=== PATIENT | female | born 1965 | race Caucasian/White ===

== ENCOUNTER → 2017-03-10 | Outpatient (CLI) | payer BC ==
--- NOTE | 2017-03-10 14:48 | KCIC ---
AP pelvis with two-view right hip HISTORY: Severe right hip pain for 2 months. No known injury. FINDINGS: Subchondral sclerosis and cysts, with mild spurring, at the pubic symphysis. 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 No evidence of acute fracture. No aggressive bone destruction. No dislocation. No significant soft tissue abnormality. IMPRESSION: 1. Findings compatible with osteitis pubis. 2. No acute abnormality otherwise identified. Electronically signed by: Arsalan Hammond MD (03/10/2017 2:45 PM) [facility]2
== END | disposition home or self-care (01) ==
LOC: KCIC 11:58
PROVIDERS: ATTEND Family Medicine
DX: M25.551 Pain in right hip (principal)
CPT/HCPCS: 73502

== ENCOUNTER → 2017-04-04 | Outpatient (CLI) | payer BC ==
--- NOTE | 2017-04-04 16:52 | KCIC ---
INDICATION: Low back pain radiating down right leg. TECHNIQUE: Sagittal T1, sagittal T2, sagittal STIR, axial T1, and axial T2 sequences are provided. No comparison is available. FINDINGS: Localizing series demonstrates mild dextrocurvature centered at L2-L3. There is no subluxation. There is a probable hemangioma at L3. There is no worrisome marrow lesion. There is fatty replacement of the endplates at L4-L5. There is diffuse disc desiccation. The conus medullaris is normal in signal intensity and in position. A few perineural cysts are noted. Right extrarenal pelvis is noted. The numbering system assumes 5 lumbar type vertebral bodies. Findings by individual level are as follows: L1-L2: There is no canal or foraminal compromise. L2-L3: There is a shallow left paracentral protrusion without canal or foraminal compromise. L3-L4: There is a mild disc bulge, likely with superimposed shallow left paracentral protrusion. There is minimal facet hypertrophy. There is also a right foraminal protrusion minimally contacting the exiting nerve root. There is no canal stenosis. L4-L5: Disc bulge and facet hypertrophy are noted with right foraminal herniation contacting the exiting nerve root. There is also mild right lateral recess narrowing. L5-S1: There is a right paracentral shallow protrusion and minimal facet hypertrophy. There is no canal or foraminal compromise. IMPRESSION: 1. Degenerative disc disease includes right foraminal herniations at L3-L4 and L4-L5, both of which contact the exiting nerve roots. Findings are more notable at L4-L5. 2. No high-grade canal stenosis at any level. Electronically signed by: Yo Heard MD (04/04/2017 4:49 PM) [facility]1
== END | disposition home or self-care (01) ==
LOC: KCIC MRI 15:46
PROVIDERS: ATTEND Family Medicine
DX: M51.36 Other intervertebral disc degeneration, lumbar region (principal)
CPT/HCPCS: 72148

== ENCOUNTER → 2017-04-13 | Outpatient (CLI) | payer BC ==
[~2017-04-13] MED LIST: ACET325T9 PO; GABA-585 PO; IOHEXOL 180 MG/ML 10 ML VIAL. ONE; NAPR500T3 PO; methylPREDNISolone ACETATE 40 MG/ML VIAL. ONE; methylPREDNISolone ACETATE 80 MG/ML VIAL. ONE; tylenol pm
--- NOTE | 2017-04-14 00:22 | PAIN ---
DATE OF SERVICE: 04/13/2017 INITIAL CONSULTATION FOR PAIN CLINIC CHIEF COMPLAINT: Low back and right lower extremity pain. HISTORY OF PRESENT ILLNESS: This is a 51-year-old female who presents with a history of pain in the low back for about 3 months, increasing since December of this year, no injury or accidents specifically reported, but just a gradually increasing pain in low back, right posterior gluteus, posterior thigh, radiating to the right groin and anterior thigh as well as some in the posterior aspect of the thigh, but mostly in the anterior lateral aspect. The patient reports no specific injury. It came up on its own. It is worse with activity, standing, walking, changing positions. It is better with sitting or lying down. It does awaken her from sleep occasionally, not every night. The patient reports it does not affect her bowel or bladder control, but does affect her ability to walk. If she is on her feet more than about 20-30 minutes, it does become more painful. The patient reports it is constant, throbbing, shooting with tingling and numbness. There is also some burning sensation in the same distribution, changes during the day, worse as activity goes on. The patient has physical therapy and exercise. She continues to do the exercises as well, but has not been significantly reducing the pain. The patient has tried Tylenol, Naprosyn, tramadol and gabapentin. The gabapentin has slightly helped, which she is taking 100 mg at night. Tylenol and Naprosyn also decreases the pain, but only for about 25%. The patient reports tramadol did not help. She had significant nausea response to it and stopped taking it. The patient had MRI scan of lumbar spine showing degenerative disease, right foraminal herniations at L3-L4 and L4-L5 both of which contact the exiting nerve roots, more notable at L4-L5. The patient reports no loss of motor function of the lower extremities, but significant fatigability of the right leg with standing. The patient reports her disability rate from 0-10, 10 being the worst, is at 6 with family and home responsibilities, occupation, self-care, 7 with recreation, social activity, 9 with sexual behavior, 4 with life support activities. PAST MEDICAL HISTORY: Significant for previous history of dizziness, sensitive stomach, Meniere disease. PREVIOUS SURGERY: Includes tonsillectomy in 1983, eye surgery in 2008 and x 2 in the past as well. CURRENT MEDICATIONS: Include gabapentin 100 mg at bedtime, naproxen 500 mg twice daily and Tylenol 325 mg 2 tablets as needed for pain up to 3 times daily. FAMILY HISTORY: Significant for diabetes. SOCIAL HISTORY: The patient does not smoke. Drinks alcohol 1-2 glasses of wine occasionally, but infrequently. The patient is , lives with her spouse and lives locally in [place], [place]. Works as a first grade elementary assistant teacher. REVIEW OF SYSTEMS: The patient's review of systems is positive for those items mentioned in history of present illness. It is complete, full and well documented on the patient's chart. All systems reviewed and otherwise negative. PHYSICAL EXAMINATION: VITAL SIGNS: The patient's blood pressure is 113/70, pulse 81, respirations 16, temperature 98.2 degrees Fahrenheit. Height is 5 feet 3 inches, weight 156 pounds. GENERAL: The patient is awake, alert, oriented, appropriate, very pleasant demeanor. HEENT: Head shows normocephalic, atraumatic. Extraocular movements are intact and symmetrical. Oral cavity: Mucous membranes moist and pink. Dentition is intact. NECK: Shows anterior throat supple without palpable lymphadenopathy noted. Swallow reflex is symmetrical. CHEST: Normal inspection. Breath sounds are clear to auscultation bilaterally. HEART: S1, S2 clear. No murmurs auscultated. ABDOMEN: Soft, nontender, nondistended. No palpable organomegaly. There is no rebound or guarding demonstrated. BACK: Shows grossly in the midline, normal appearing thoracic kyphosis and lumbar lordotic curvature. No bruises, lesions, rashes, or scars noted. Lumbar paraspinous musculature is symmetrical on inspection. With palpation, showed some mild to moderate tenderness to palpation, but only diffusely in lower lumbar distribution, without asymmetry, without triggers points or radiation, no tenderness over sacrum or sacroiliac regions. Lower extremities show deep tendon reflexes at 2+ in the patellar, 1+ tendocalcaneal tendons are equal. Motor exam is strong with 5/5 dorsiflexion, extension, quadriceps and hamstring flexion and symmetrical. Peripheral pulses are 2+ in the posterior tibial and dorsalis pedis pulses. No peripheral edema is noted. No clubbing or cyanosis. The patient's straight leg raise is noted to be positive on the right to about 45 degrees with decreased knee flexion and the left side is negative. Gaenslen and Brad maneuvers are negative bilaterally. The patient is able to stand, stand on her toes without difficulty or loss of balance, is walking with a normal appearing gait. Does not appear to have any favoring of the right or left lower extremities and is not using any assistive device to ambulate. IMPRESSION: 1. This is a 51-year-old female with approximately 3-month history of increasing pain, low back and radiation into the right lower extremity as noted with radicular qualities. 2. MRI scan of lumbar spine as noted. 3. History of Meniere disease and dizziness. PLAN: Options were discussed with the patient including conservative medical management, physical therapy and interventional technique. She would like to pursue interventional techniques. We discussed a lumbar epidural steroid injection using description as well as anatomical models to describe the procedure. Risks were then discussed including, but not limited to bleeding, infection, possibility of epidural hematoma, subsequent neurologic compromise, dural puncture, headaches, spinal cord and/or nerve damage, hematemesis and neurologically, bilateral, headaches, claims importantly pain control. The patient understands and wished to proceed. The patient will return to clinic in approximately 2 weeks for followup. She was counseled to return appointment, activity level and side effects to be aware of. DIAGNOSES: Lumbar radiculopathy with lumbar degenerative disk disease and lumbar herniated disk. PROCEDURE: Lumbar epidural steroid injection in translaminar approach to the L4-L5 level using C-arm fluoroscopic guidance under sterile prep and drape using local anesthetic. MEDICATION INJECTED: A total of 120 mg Depo-Medrol plus 10 mL preservative-free normal saline and 2 mL Isovue for contrast. CONDITION AT DISCHARGE: Stable. The patient tolerated the procedure well, had no complications. CLAUDIA BELLO MD DR: AZAEL/tyler JOB#: [id number] / [id number] MIRZA Spencer MD
== END | disposition home or self-care (01) ==
LOC: PNCL 07:25
PROVIDERS: ATTEND Anesthesiology
DX: M51.16 Intervertebral disc disorders with radiculopathy, lumbar region (principal); Z83.3 Family history of diabetes mellitus; Z88.8 Allergy status to other drugs, medicaments and biological substances; Z72.89 Other problems related to lifestyle
CPT/HCPCS: 62323; J1030; J1040

== ENCOUNTER 2021-07-01 07:31 | Emergency (ER) | payer BC ==
[~2021-07-01] VITALS: Ht 160 cm; Wt 72.5 kg
[~2021-07-01 07:31] MED LIST changes: -IOHEXOL 180 MG/ML 10 ML VIAL. ONE; +NAPR-514 PO; -NAPR500T3 PO; -methylPREDNISolone ACETATE 40 MG/ML VIAL. ONE; -methylPREDNISolone ACETATE 80 MG/ML VIAL. ONE
--- NOTE | 2021-07-01 07:44 | PHYS DOC ---
General Adult EDM: Chief Complaint: BACK PAIN - NO INJURY HPI: HPI: Patient is a 55 year old female here with low back pain, mostly on the right side with, with radiation of pain down her right buttocks and leg. She has a history of reported spinal stenosis, diagnosed 5 years ago. She saw pain management once and had an epidural injection, which improved her pain for quite some time. She reports that she has been doing some gardening and pulling weeds, several days ago, and now her pain has progressively worsened. She has taken [id number] Tylenol and Aleve with little relief. Her gave her 10 mg of Flexeril around 630 this morning. She reports no relief from that. She denies any direct trauma or injury. Denies fevers or chills. Denies abdominal pain. Denies urinary symptoms. She denies stool or urine incontinence. She denies motor weakness. She reported that she felt some tingling down her right leg briefly, but this resolved. No numbness. The pain is worse with movement, standing, bending and straight leg raising. She does not have a primary care physician currently, she has not sought care before today. Review of Systems: Review of Systems: Constitutional: Denies fever or chills. [] Respiratory: Denies cough or shortness of breath. [] Cardiovascular: Denies chest pain or edema. [] GI: Denies abdominal pain, nausea, vomiting : Denies urinary symptoms or urinary incontinence. Musculoskeletal: Reports low back pain, as detailed in HPI. Denies joint pain or swelling. Integument: Denies rash. [] Neurologic: Denies headache, focal weakness or sensory changes. [] Endocrine: Denies polyuria or polydipsia. [] Psychiatric: Denies depression or anxiety. [] Heart Score: C/O Chest Pain: No Risk Factors: Risk Factors: DM, Current or recent (<one month) smoker, HTN, HLP, family history of CAD, obesity. Risk Scores: Score 0 - 3: 2.5% MACE over next 6 weeks - Discharge Home Score 4 - 6: 20.3% MACE over next 6 weeks - Admit for Clinical Observation Score 7 - 10: 72.7% MACE over next 6 weeks - Early Invasive Strategies Allergies: Allergies: Allergies Coded Allergies Type Severity Reaction Last Updated Verified tramadol Adverse Reaction Severe Nausea and Vomiting 04/13/17 Yes Physical Exam: PE: Constitutional: Well developed, well nourished, no acute distress, non-toxic appearance. [] HENT: Normocephalic, atraumatic Eyes: Sclera are clear and anicteric. Neck: Trachea is midline. Cardiovascular:Heart rate regular rhythm, +2 radial and posterior tibial pulses bilaterally. Lungs & Thorax: Bilateral breath sounds clear to auscultation [] Abdomen: Abdomen soft, nondistended, nontender to palpation. No CVA tenderness. No flank or abdominal ecchymoses. No pulsatile mass noted. Skin: Warm, dry, no erythema, no rash. [] Back: No deformity, no midline tenderness or step-offs. Limited range of motion secondary to pain, mostly with flexion of the spine and rotating/rolling on the ED gurney. Extremities: No tenderness, no cyanosis, no clubbing, ROM intact, no edema. [] Neurologic: Alert and oriented X 3, normal motor function, normal sensory function, no focal deficits noted. 5 out of 5 motor strength all 4 extremities. DTRs 2 out of 4 bilateral lower extremities. Sensation is grossly intact. No foot drop noted. She is able to fully extend/dorsiflex both feet, full extension of the great toes. Antalgic but steady gait. Speech is clear and fluent Psychologic: Anxious, cooperative. EKG: EKG: [] Radiology/Procedures: Radiology/Procedures: IMAGING REPORT Signed PATIENT: EKTA MICHELLE ACCOUNT: [id number] : 1965 LOCATION: ER AGE: 55 SEX: F EXAM STATUS: REG ER ORD. PHYSICIAN: OK MCCLELLAND DO REASON: low back pain PROCEDURE: CT LUMBAR SPINE WO CONTRAST CT LUMBAR SPINE WO History:Reason: low back pain / Spl. Instructions: / History: Technique: Noncontrast CT was performed of the lumbar spine. Multiplanar reconstructions were performed. Exposure: One or more of the following individualized dose reduction techniques were utilized for this examination: 1. Automated exposure control 2. Adjustment of the mA and/or kV according to patient size 3. Use of iterative reconstruction technique. Comparison: MRI lumbar spine April 04, 2017 Findings: Normal vertebral body height and alignment. No fracture. Mild rightward curvature of the lumbar spine. And mild right hydronephrosis. Mild right perinephric edema. Abrupt tapering at the ureteropelvic junction. No renal or ureteral calculus. T12-L1: No canal or neuroforaminal narrowing. L1-L2: Minimal disc bulge. No canal or neuroforaminal narrowing. L2-L3: Small disc bulge. No canal or neuroforaminal narrowing. L3-L4: Broad-based disc bulge. Right foraminal disc protrusion. Mild to moderate right neuroforaminal narrowing, increased compared to prior. There is abutment of the exiting right L3 nerve root. No canal narrowing. Mild left neuroforaminal narrowing. L4-L5: Disc bulge with slight disc extrusion extends superiorly. No canal narrowing. Mild right subarticular recess narrowing. Mild facet arthropathy. Mild bilateral neuroforaminal narrowing. L5-S1: Small disc bulge. Moderate facet arthropathy. No canal narrowing. No neuroforaminal narrowing. Impression: 1. Multilevel lumbar spondylosis. 2. L3-L4 right foraminal disc protrusion contributing to mild to moderate right neuroforaminal narrowing with abutment of the exiting right L3 nerve root, increased compared to prior. Correlate for radiculopathy. 3. Mild right hydronephrosis with abrupt tapering at the ureteropelvic junction and perinephric edema, concerning for UPJ obstruction. Findings are overall similar compared to prior MRI. Electronically signed by: Kemar Headley DO (07/01/2021 9:21 AM) [id number] DICTATED and SIGNED BY: KEMAR HEADLEY DO DATE: 07/01/21 [id number] Course & Med Decision Making: Course & Med Decision Making Pertinent Labs and Imaging studies reviewed. (See chart for details) The patient is given IV fluids, IV Toradol, p.o. Valium, IV fentanyl and p.o. [place] and a first dose of p.o. prednisone here. She does appear to be resting more comfortably. She reports the pain is still present but is improved. CT imaging does reveal some disc disease at L4-L5, which correlates with her right- sided radiculopathy pain. Currently no red flag signs or symptoms. She has a normal/nonfocal neurologic exam. No indication for further emergent imaging such as MRI or admission. I did explain that she very well may require outpatient MRI. I have strongly encouraged her to follow-up with her primary care physician. She wants to go back to pain management and receive another steroid injection, and I explained to her that she still needs to be referred by a primary care physician. She may need to discuss physical therapy prior to pain management as well. I have discussed home care instructions with her, including gentle stretching, alternating ice and heat. She is provided with a work note. She also does manifest evidence of pyuria and bacteriuria on UA. She does report that she has had dark urine and a strong odor to her urine for "a while." Urine culture is pending. She will be prescribed oral antibiotics. Strict return precautions are given. She verbalized understanding of instructions provided. Cristine Disclaimer: Cristine Disclaimer: This electronic medical record was generated, in whole or in part, using a voice recognition dictation system. Departure Departure Impression: Primary Impression: Right low back pain Additional Impressions: Lumbar radiculopathy, right Lumbar disc disease with radiculopathy Urinary tract infection Disposition: HOME / SELF CARE / HOMELESS Condition: STABLE Referrals: MIRZA GERONIMO MD (PCP) Patient Instructions: Lumbosacral Radiculopathy, Urinary Tract Infection Additional Instructions: Take the pain medication as needed/as directed. Take the full course of prednisone, take this with food. Please follow-up with your primary care physician, and you may need a referral for outpatient pain management and/or physical therapy services. You may alternate ice and heat as well. Return to the ER for severe abdominal pain, fever 100.4 or higher, uncontrolled vomiting, more severe pain, acute all or trauma, if you develop paralysis or motor weakness or any other concerns. Scripts Ondansetron Hcl (ZOFRAN) 4 Mg Tablet 4 MG PO PRN TID PRN for VOMITING, #20 TAB nausea/vomiting Prov: OK MCCLELLAND DO 07/01/21 Nitrofurantoin Monohyd/M-Cryst (MACROBID 100 MG CAPSULE) 100 Mg Capsule 1 CAP PO BID for 7 Days, #14 CAP 0 Refills Prov: OK MCCLELLAND DO 07/01/21 Prednisone (PREDNISONE) 50 Mg Tablet 1 TAB PO DAILY for 4 Days, #4 TAB Prov: OK MCCLELLAND DO 07/01/21 Diazepam (VALIUM) 2 Mg Tablet 2 MG PO BID for muscle spasm, #10 TAB Prov: OK MCCLELLAND DO 07/01/21 Hydrocodone Bit/Acetaminophen (HYDROCODONE-APAP 5-325 ) 1 Tab Tablet 1 TAB PO PRN Q6HRS PRN for PAIN, #20 TAB 0 Refills Prov: OK MCCLELLAND DO 07/01/21 OK MCCLELLAND DO Jul 01, 2021 07:44
[2021-07-01] MEDS ORDERED: fentaNYL PF VIAL 100 MCG/2 ML VIAL IVP ONE (08:15)
[2021-07-01] MEDS ORDERED: diazePAM 5 MG TABLET PO ONE (08:15)
[2021-07-01] MEDS ORDERED: KETOROLAC 15 MG/ML VIAL. IVP ONE (08:15)
[2021-07-01] MEDS ORDERED: ONDANSETRON PF 4 MG/2 ML VIAL. IVP ONE (08:15)
[2021-07-01] MEDS ORDERED: IV NORMAL SALINE 1000ML BAG 1,000 ML IV ONE (08:45)
--- NOTE | 2021-07-01 09:24 | RAD ---
CT LUMBAR SPINE WO History:Reason: low back pain / Spl. Instructions: / History: Technique: Noncontrast CT was performed of the lumbar spine. Multiplanar reconstructions were perform ed. Exposure: One or more of the following individualized dose reduction techniques were utilized for thi s examination: 1. Automated exposure control 2. Adjustment of the mA and/or kV according to patient size 3. Use of iterative reconstruction technique. Comparison: MRI lumbar spine April 04, 2017 Findings: Normal vertebral body height and alignment. No fracture. Mild rightward curvature of the lumbar spine . And mild right hydronephrosis. Mild right perinephric edema. Abrupt tapering at the ureteropelvic randy ction. No renal or ureteral calculus. T12-L1: No canal or neuroforaminal narrowing. L1-L2: Minimal disc bulge. No canal or neuroforaminal narrowing. L2-L3: Small disc bulge. No canal or neuroforaminal narrowing. L3-L4: Broad-based disc bulge. Right foraminal disc protrusion. Mild to moderate right neuroforamina l narrowing, increased compared to prior. There is abutment of the exiting right L3 nerve root. No ca nal narrowing. Mild left neuroforaminal narrowing. L4-L5: Disc bulge with slight disc extrusion extends superiorly. No canal narrowing. Mild right suba rticular recess narrowing. Mild facet arthropathy. Mild bilateral neuroforaminal narrowing. L5-S1: Small disc bulge. Moderate facet arthropathy. No canal narrowing. No neuroforaminal narrowing . Impression: 1. Multilevel lumbar spondylosis. 2. L3-L4 right foraminal disc protrusion contributing to mild to moderate right neuroforaminal narro wing with abutment of the exiting right L3 nerve root, increased compared to prior. Correlate for rad iculopathy. 3. Mild right hydronephrosis with abrupt tapering at the ureteropelvic junction and perinephric brent a, concerning for UPJ obstruction. Findings are overall similar compared to prior MRI. Electronically signed by: Kemar Headley DO (07/01/2021 9:21 AM) [id number]
[2021-07-01 09:25] LABS: BASO % 0 % (0-3); EOS % 0 % (0-3); HEMATOCRIT 42.7 % (36.0-47.0); HEMOGLOBIN 14.2 g/dL (12.0-15.5); LYMPH # 0.6 x10^3/uL (1.0-4.8); LYMPH % 11 % (24-48); MEAN CORPUSCULAR HEMOGLOBIN 28 pg (25-35); MEAN CORPUSCULAR HGB CONC 33 g/dL (31-37); MEAN CORPUSCULAR VOLUME 83 fL (79-100); MONO # 0.2 x10^3/uL (0.0-1.1); MONO % 3 % (0-9); NEUT # 4.4 x10^3/uL (1.8-7.7); NEUT % 86 % (31-73); PLATELET COUNT 211 x10^3/uL (140-400); RED BLOOD COUNT 5.13 x10^6/uL (3.50-5.40); RED CELL DISTRIBUTION WIDTH 13.5 % (11.5-14.5); WHITE BLOOD COUNT 5.1 x10^3/uL (4.0-11.0)
[2021-07-01 09:40] LABS: CALCIUM 9.2 mg/dL (8.5-10.1); GFR 57.4; POTASSIUM 4.2 mmol/L (3.5-5.1)
[2021-07-01] MEDS ORDERED: HYDROcodone/APAP 5/325MG 1 TAB TABLET PO ONE (09:45)
[2021-07-01] MEDS ORDERED: predniSONE 10 MG TABLET PO ONE (09:45)
[2021-07-01 10:56] LABS: BILIRUBIN,URINE NEGATIVE (NEG); CLARITY,URINE CLEAR; COLOR,URINE YELLOW; NITRITE,URINE POSITIVE (NEG); PROTEIN,URINE NEGATIVE (NEG-TRACE); UROBILINOGEN,URINE 0.2 mg/dL (0.2 mg/dL)
[2021-07-01 11:16] LABS: BACTERIA,URINE MANY /HPF (0-FEW); RBC,URINE 0 /HPF (0-2); WBC,URINE >40 /HPF (0-4)
[2021-07-01 11:47] VITALS: BP 118/56
[2021-07-01] MEDS ORDERED: ONDA4TAB7 PO (11:51)
[2021-07-01] MEDS ORDERED: HYDR-2761 PO (11:51)
[2021-07-01] MEDS ORDERED: PRED50TA PO (11:51)
[2021-07-01] MEDS ORDERED: NITR100C62 PO (11:51)
[2021-07-01] MEDS ORDERED: DIAZ2TAB PO (11:51)
== END 2021-07-01 12:28 | disposition home or self-care (01) ==
LOC: ER 07:31
DX: M51.16 Intervertebral disc disorders with radiculopathy, lumbar region (principal); N39.0 Urinary tract infection, site not specified; Z88.6 Allergy status to analgesic agent
CPT/HCPCS: 36415; 72131; 80048; 81001; 85025; 87086; 96361; 96374; 96375; 99285; J1885; J2405; J3010; J7030; J7512; 87077; 87186